=== PATIENT | male | born 1995 | race Two or more races ===

== ENCOUNTER 2020-01-14 12:31 | Emergency (ER) | payer OTHER ==
[~2020-01-14] VITALS: Ht 175.3 cm; Wt 58.1 kg
--- NOTE | 2020-01-14 12:51 | NUR ---
SAM FROM PT'S PLACED ON EMPLOYMENT. TO ER BED 3. AAOX4. NOT IN RESP DISTRESS. CAME IN FOR L ANKLE PAIN S/P FALLING ON THE FLOOR OF A VAN AFTER HITTING A BUMP. NOTED SWELLING AND DEFORMITY ON L ANKLE. PAIN IS RATED7/10 SHARP THROBBING. PEDAL PULSE PRESENT WELL SENSATION. WAS AT THE BEDSIDE FOR EVAL. AWAITING ORDERS
[2020-01-14] MEDS ORDERED: ONDANSETRON HCL/PF 4 MG/2 ML VIAL ONE (13:10)
[2020-01-14] MEDS ORDERED: MORPHINE SULFATE INJ 4 MG/ML DISP.SYRIN ONE ×2 (13:11→13:18)
[2020-01-14] MEDS ORDERED: KETAMINE HCL(200MG/20ML) 10 MG/ML VIAL IV ONE (13:30)
[2020-01-14] MEDS ORDERED: ONDANSETRON HCL/PF 4 MG/2 ML VIAL IV ONE (13:30)
[2020-01-14] MEDS ORDERED: MORPHINE SULFATE INJ 2 MG/ML DISP.SYRIN IV ONE (13:30)
--- NOTE | 2020-01-14 13:35 | NUR ---
CONSENT OBTAINED FROM PT FOR A MODERATE SEDATION FOR LEFT ANKLE CLOSE REDUCTION.
[2020-01-14] MEDS ORDERED: KETAMINE HCL (500MG/10ML) 50 MG/ML VIAL ONE (13:40)
--- NOTE | 2020-01-14 13:53 | NUR ---
Moderate sedation sedating agent: Ketamine 75mg IVP x 1.
--- NOTE | 2020-01-14 14:10 | NUR ---
PT IS AWAKE AND ALERT BUT STILL DROWSY. ABLE TO ANSWER ALL QUESTION. NOT IN RESP DISTRESS, BREATHING EVEN AD UNLABORED.
[2020-01-14] MEDS ORDERED: IV NS 0.9% 500 ML BAG IV ONE (14:30)
--- NOTE | 2020-01-14 14:50 | NUR ---
IV removed. Catheter intact and site benign. Pressure and 4x4 applied to site. No bleeding noted.
--- NOTE | 2020-01-14 14:50 | NUR ---
Patient discharged to home in stable condition. Written and verbal after care instructions given. Patient verbalizes understanding of instruction. Pt assisted to his father's care on wheelchair. Pt teaching on crutches use, pt retured demo.
[2020-01-14 14:53] VITALS: BP 132/75
== END 2020-01-14 14:54 | disposition home or self-care (01) ==
LOC: ER 12:35
DX: S92.192A Other fracture of left talus, initial encounter for closed fracture (principal); S82.832A Other fracture of upper and lower end of left fibula, initial encounter for closed fracture; W18.39XA Other fall on same level, initial encounter; Y93.I9 Activity, other involving external motion; Y92.89 Other specified places as the place of occurrence of the external cause; Y99.8 Other external cause status
CPT/HCPCS: 28435; 73590; 73600; 73610; 96374; 96375; 99285; J2270; J2405; J3490; J7030